=== PATIENT | male | born 1960 | race Caucasian/White ===

== ENCOUNTER → 2018-03-15 | Outpatient (CLI) | payer BC ==
[2014-02-08 12:28] VITALS: BP 119/62
--- NOTE | 2018-03-15 13:22 | NM ---
HISTORY: Nausea, vomiting, bloating Study: Nuclear medicine gastric emptying scan, solids Comparison: None Technique: Patient received an oral dose of 0.5 mCi technetium 99 M sulfur colloid with a eggs. Image s of the abdomen were obtained anteriorly and posteriorly. A time activity curve was plotted. Findings: 90 minutes post ingestion 75.48% of the dose remains in the stomach indicating gastric emptying at 90 minutes of 24.52%. Normal gastric emptying at 90 minutes is greater than 35%. This suggests delayed gastric emptying. IMPRESSION: Findings suggestive of delayed gastric emptying which could be on the basis of gastro paresis or vee magaly outlet obstruction. Reported By:
== END ==
LOC: RAD 09:02
PROVIDERS: ATTEND Internal Medicine
DX: R11.2 Nausea with vomiting, unspecified (principal); R10.13 Epigastric pain; E11.9 Type 2 diabetes mellitus without complications
CPT/HCPCS: 78264